=== PATIENT | male | born 1985 | race Caucasian/White ===

== ENCOUNTER 2021-04-16 23:19 | Inpatient (IN) ==
[2021-04-16] MEDS ORDERED: 0.9 % Sodium Chloride 1,000 ML IVC ONE (23:51)
[2021-04-17 00:42] LABS: ABG Base Excess 1 mEq/L (-2 to 3); ABG HCO3 25 mEq/L (21-27); ABG Oxygen Saturation 95 % (95-98); ABG PCO2 35 mmHg (35-45); ABG PH 7.45 pH Units (7.32-7.45); ABG PO2 73 mmHg (85-104); ABG TCO2 26 mEq/L (20-26)
[2021-04-17 01:02] LABS: Basophils % 0.1 %; Hematocrit 22.3 % (37.5-50.1); Immature Granulocytes % 0.5 % (0-4); Lymphocytes # 1.9 K/mcL (0.6-4.6); Lymphocytes % 25.9 %; Mean Corpuscular HGB Conc 35.4 g/dL (31.6-35.5); Mean Corpuscular Hemoglobin 30.4 pg (28.0-33.3); Mean Corpuscular Volume 85.8 fL (83.0-100.0); Mean Platelet Volume 9.7 fL (9.4-12.4); Monocytes # 0.8 K/mcL (0.0-1.3); Monocytes % 10.4 %; Neutrophils # 4.6 K/mcL (1.6-8.9); Platelet Count 373 K/mcL (140-400); Red Cell Distribution Width 11.7 % (11.5-14.5); Segmented Neutrophils % 63.1 %; White Blood Count 7.3 K/mcL (4.3-11.1)
[2021-04-17 01:04] LABS: Hemoglobin 7.9 g/dL (12.9-16.9)
[2021-04-17 01:21] LABS: BUN/Creatinine Ratio 52 (6-26); Blood Urea Nitrogen 30 mg/dL (6-20); Calcium 7.8 mg/dL (8.6-10.3); Carbon Dioxide 25 mEq/L (23-29); Chloride 101 mEq/L (98-107); Glucose 129 mg/dL (70-105); Osmolality,Calculated 284 (280-300); Potassium 4.1 mEq/L (3.5-5.1); Sodium 133 mEq/L (136-145); eGFR For African Americans > 60 (> 60); eGFR For Non-African Americans > 60 (> 60)
[2021-04-17] MEDS ORDERED: 0.9 % Sodium Chloride 1,000 ML IV ONE (02:28)
[2021-04-17] MEDS ORDERED: Naloxone 0.4 MG/ML INJ IVP PRN (05:13)
[2021-04-17] MEDS ORDERED: Ondansetron 4 MG/2 ML VIAL IVP PRN (05:13)
[2021-04-17] MEDS ORDERED: Ipratropium/Albuterol Neb 3 ML IH PRN (05:16)
[2021-04-17] MEDS: Pantoprazole 40 MG VIAL IVP SCH ×2 (06:26→17:36)
[2021-04-17] MEDS: 0.9 % Sodium Chloride 1,000 ML IVC SCH ×2 (06:26→15:55)
[2021-04-17] MEDS ORDERED: Calcium Gluconate 1gm/50mL 1 GM/50 ML BAG IVPB ONE (06:32)
[2021-04-17 07:56] LABS: Basophils % 0.1 %; Hematocrit 18.3 % (37.5-50.1); Hemoglobin 6.4 g/dL (12.9-16.9); Immature Granulocytes % 0.3 % (0-4); Lymphocytes # 1.9 K/mcL (0.6-4.6); Lymphocytes % 25.1 %; Mean Corpuscular Hemoglobin 30.6 pg (28.0-33.3); Mean Corpuscular Volume 87.6 fL (83.0-100.0); Mean Platelet Volume 9.9 fL (9.4-12.4); Monocytes # 0.8 K/mcL (0.0-1.3); Neutrophils # 4.8 K/mcL (1.6-8.9); Platelet Count 349 K/mcL (140-400); Red Blood Count 2.09 M/mcL (4.19-5.50); Red Cell Distribution Width 11.9 % (11.5-14.5); Segmented Neutrophils % 64.5 %; White Blood Count 7.5 K/mcL (4.3-11.1)
[2021-04-17 08:02] LABS: INR 1.3
[2021-04-17 08:10] LABS: Alanine Aminotransferase 50 Units/L (7-52); Albumin 2.7 g/dL (3.5-5.7); Albumin/Globulin Ratio 1.3 (1.1-2.2); Alkaline Phosphatase 25 Units/L (34-104); Aspartate Amino Transferase 61 Units/L (13-39); BUN/Creatinine Ratio 39 (6-26); Bilirubin,Total 0.3 mg/dL (0.3-1.0); Blood Urea Nitrogen 24 mg/dL (6-20); Calcium 7.5 mg/dL (8.6-10.3); Carbon Dioxide 25 mEq/L (23-29); Chloride 103 mEq/L (98-107); Globulin 2.1 g/dL (2.4-3.5); Glucose 108 mg/dL (70-105); Osmolality,Calculated 279 (280-300); Potassium 4.2 mEq/L (3.5-5.1); Sodium 132 mEq/L (136-145); Total Protein 4.8 g/dL (6.4-8.9); eGFR For African Americans > 60 (> 60); eGFR For Non-African Americans > 60 (> 60)
[2021-04-17 08:11] LABS: % Iron Saturation 25 % (20-55); Iron 64 mcg/dL (65-175); Transferrin 183 mg/dL (203-362)
[2021-04-17 08:24] LABS: Ferritin 287 ng/mL (20-250)
[2021-04-17] MEDS ORDERED: Pantoprazole 40 MG VIAL IVP SCH (09:00)
[2021-04-17 10:34] LABS: Bilirubin,Urine Negative (Negative); Blood,Urine Negative (Negative); Clarity,Urine Clear (Clear); Color,Urine Light-Yellow (Yellow); Glucose,Urine (UA) Normal (Normal); Ketones,Urine Negative (Negative); Leukocyte Esterase,Urine Negative (Negative); Nitrite,Urine Negative (Negative); Protein,Urine Trace mg/dL (Neg-Trace); Specific Gravity,Urine 1.025 (1.010-1.025); Urobilinogen,Urine Normal (Normal)
[2021-04-17] MEDS ORDERED: 0.9 % Sodium Chloride 250 ML ONE (17:52)
[2021-04-17 21:30] LABS: Hematocrit 21.1 % (37.5-50.1); Hemoglobin 7.2 g/dL (12.9-16.9)
[2021-04-18] MEDS: Pantoprazole 40 MG VIAL IVP SCH (05:18)
[2021-04-18] MEDS: amLODIPine 5 MG TABLET PO SCH (09:16)
[2021-04-18 11:51] LABS: Basophils % 0.2 %; Eosinophils % 0.3 %; Hemoglobin 6.9 g/dL (12.9-16.9); Immature Granulocytes % 0.7 % (0-4); Lymphocytes # 1.8 K/mcL (0.6-4.6); Lymphocytes % 18.2 %; Mean Corpuscular HGB Conc 34.5 g/dL (31.6-35.5); Mean Corpuscular Hemoglobin 30.7 pg (28.0-33.3); Mean Corpuscular Volume 88.9 fL (83.0-100.0); Mean Platelet Volume 9.9 fL (9.4-12.4); Monocytes # 1.2 K/mcL (0.0-1.3); Monocytes % 12.8 %; Neutrophils # 6.6 K/mcL (1.6-8.9); Platelet Count 374 K/mcL (140-400); Red Blood Count 2.25 M/mcL (4.19-5.50); Red Cell Distribution Width 12.3 % (11.5-14.5); Segmented Neutrophils % 67.8 %; White Blood Count 9.7 K/mcL (4.3-11.1)
[2021-04-18 12:06] LABS: BUN/Creatinine Ratio 15 (6-26); Blood Urea Nitrogen 10 mg/dL (6-20); Calcium 7.9 mg/dL (8.6-10.3); Carbon Dioxide 27 mEq/L (23-29); Chloride 101 mEq/L (98-107); Glucose 107 mg/dL (70-105); Osmolality,Calculated 280 (280-300); Potassium 3.9 mEq/L (3.5-5.1); Sodium 135 mEq/L (136-145); eGFR For African Americans > 60 (> 60); eGFR For Non-African Americans > 60 (> 60)
[2021-04-18] MEDS ORDERED: *HR* Promethazine 25 MG/ML VIAL IM ONE (12:54)
[2021-04-18] MEDS: Pantoprazole 40 MG in 0.9 % Sodium Chloride Mini Bag 100 ML IVC SCH ×3 (13:37→22:27)
[2021-04-18] MEDS ORDERED: 0.9 % Sodium Chloride 250 ML ONE (14:24)
[2021-04-18] MEDS: Acetaminophen 325 MG TABLET PO PRN (17:39)
[2021-04-18] MEDS: Ondansetron 4 MG/2 ML VIAL IVP PRN ×2 (17:40→22:28)
[2021-04-18 20:09] LABS: Hematocrit 22.6 % (37.5-50.1); Hemoglobin 7.7 g/dL (12.9-16.9)
[2021-04-19] MEDS ORDERED: Prochlorperazine 10 MG/2 ML VIAL IVP PRN (01:54)
[2021-04-19] MEDS ORDERED: *HR* LORazepam 2 MG/ML VIAL IVP ONE ×2 (03:57→22:14)
[2021-04-19] MEDS: Pantoprazole 40 MG in 0.9 % Sodium Chloride Mini Bag 100 ML IVC SCH ×4 (04:20→19:48)
[2021-04-19 05:57] LABS: Basophils % 0.1 %; Eosinophils % 0.2 %; Hematocrit 22.8 % (37.5-50.1); Hemoglobin 7.8 g/dL (12.9-16.9); Immature Granulocytes % 0.6 % (0-4); Lymphocytes # 1.4 K/mcL (0.6-4.6); Lymphocytes % 11.2 %; Mean Corpuscular HGB Conc 34.2 g/dL (31.6-35.5); Mean Corpuscular Hemoglobin 30.2 pg (28.0-33.3); Mean Corpuscular Volume 88.4 fL (83.0-100.0); Mean Platelet Volume 9.7 fL (9.4-12.4); Monocytes # 2.2 K/mcL (0.0-1.3); Platelet Count 439 K/mcL (140-400); Red Blood Count 2.58 M/mcL (4.19-5.50); Red Cell Distribution Width 12.3 % (11.5-14.5); Segmented Neutrophils % 70.9 %; White Blood Count 12.6 K/mcL (4.3-11.1)
[2021-04-19 06:15] LABS: BUN/Creatinine Ratio 11 (6-26); Blood Urea Nitrogen 8 mg/dL (6-20); Calcium 8.1 mg/dL (8.6-10.3); Carbon Dioxide 28 mEq/L (23-29); Chloride 99 mEq/L (98-107); Glucose 113 mg/dL (70-105); Osmolality,Calculated 277 (280-300); Potassium 3.6 mEq/L (3.5-5.1); Sodium 134 mEq/L (136-145); eGFR For African Americans > 60 (> 60); eGFR For Non-African Americans > 60 (> 60)
[2021-04-19] MEDS: amLODIPine 5 MG TABLET PO SCH (09:40)
[2021-04-19] MEDS: Ondansetron 4 MG/2 ML VIAL IVP PRN (15:05)
[2021-04-19] MEDS: Acetaminophen 325 MG TABLET PO PRN (17:38)
[2021-04-19] MEDS ORDERED: *HR* Promethazine 25 MG/ML VIAL IM ONE (19:17)
[2021-04-20] MEDS: Pantoprazole 40 MG in 0.9 % Sodium Chloride Mini Bag 100 ML IVC SCH ×3 (00:04→09:38)
[2021-04-20] MEDS ORDERED: *HR* LORazepam 2 MG/ML VIAL IVP ONE (01:45)
[2021-04-20] MEDS ORDERED: hydrOXYzine pamoate 25 MG CAPSULE PO ONE (03:49)
[2021-04-20 07:52] LABS: Basophils % 0.1 %; Eosinophils # 0.1 K/mcL (0.0-0.6); Eosinophils % 0.7 %; Hematocrit 22.4 % (37.5-50.1); Hemoglobin 7.7 g/dL (12.9-16.9); Immature Granulocytes % 0.8 % (0-4); Lymphocytes # 1.8 K/mcL (0.6-4.6); Lymphocytes % 12.9 %; Mean Corpuscular HGB Conc 34.4 g/dL (31.6-35.5); Mean Corpuscular Volume 90.3 fL (83.0-100.0); Mean Platelet Volume 9.9 fL (9.4-12.4); Monocytes # 2.4 K/mcL (0.0-1.3); Monocytes % 16.6 %; Neutrophils # 9.8 K/mcL (1.6-8.9); Platelet Count 515 K/mcL (140-400); Red Blood Count 2.48 M/mcL (4.19-5.50); Red Cell Distribution Width 12.6 % (11.5-14.5); Segmented Neutrophils % 68.9 %; White Blood Count 14.2 K/mcL (4.3-11.1)
[2021-04-20 08:15] LABS: BUN/Creatinine Ratio 12 (6-26); Blood Urea Nitrogen 9 mg/dL (6-20); Calcium 8.4 mg/dL (8.6-10.3); Carbon Dioxide 30 mEq/L (23-29); Chloride 100 mEq/L (98-107); Glucose 109 mg/dL (70-105); Osmolality,Calculated 281 (280-300); Potassium 3.6 mEq/L (3.5-5.1); Sodium 136 mEq/L (136-145); eGFR For African Americans > 60 (> 60); eGFR For Non-African Americans > 60 (> 60)
[2021-04-20] MEDS: amLODIPine 5 MG TABLET PO SCH (09:38)
[2021-04-20 11:28] VITALS: TEMP 98.4; O2SAT 96
[2021-04-20 14:24] VITALS: BP 144/80; PULSE 82
[2021-04-20] MEDS ORDERED: *HR* Propofol 200 MG/20 ML VIAL IVP ONE (16:09)
[2021-04-20] MEDS ORDERED: Lidocaine -MPF 2% 5 ML VIAL SQ ONE (16:09)
== END 2021-04-20 16:10 | disposition home or self-care (01) | DRG 377 ==
LOC: EMEROOARM 23:19 → CDU 23:19 → SUATTDRO 04-17 03:21 → CDU 04-17 04:00 → 3NENU 04-18 21:04
PROVIDERS: ADMIT Internal Medicine; ATTEND Internal Medicine

== ENCOUNTER 2021-04-27 09:10 | Observation (INO) ==
[2021-04-27 12:26] LABS: Basophils # 0.1 K/mcL (0.0-0.2); Basophils % 0.5 %; Eosinophils # 0.3 K/mcL (0.0-0.6); Hematocrit 23.6 % (37.5-50.1); Hemoglobin 7.6 g/dL (12.9-16.9); Immature Granulocytes % 0.6 % (0-4); Lymphocytes # 2.6 K/mcL (0.6-4.6); Lymphocytes % 25.5 %; Mean Corpuscular HGB Conc 32.2 g/dL (31.6-35.5); Mean Corpuscular Hemoglobin 29.1 pg (28.0-33.3); Mean Corpuscular Volume 90.4 fL (83.0-100.0); Mean Platelet Volume 8.8 fL (9.4-12.4); Monocytes # 1.4 K/mcL (0.0-1.3); Monocytes % 13.5 %; Neutrophils # 5.8 K/mcL (1.6-8.9); Platelet Count 1003 K/mcL (140-400); Red Blood Count 2.61 M/mcL (4.19-5.50); Segmented Neutrophils % 56.9 %; White Blood Count 10.1 K/mcL (4.3-11.1)
[2021-04-27 12:48] LABS: BUN/Creatinine Ratio 25 (6-26); Blood Urea Nitrogen 14 mg/dL (6-20); C-Reactive Protein 23 mg/L (Less than 10); Calcium 8.9 mg/dL (8.6-10.3); Carbon Dioxide 28 mEq/L (23-29); Chloride 102 mEq/L (98-107); Glucose 97 mg/dL (70-105); Osmolality,Calculated 282 (280-300); Potassium 4.3 mEq/L (3.5-5.1); Sodium 136 mEq/L (136-145); eGFR For African Americans > 60 (> 60); eGFR For Non-African Americans > 60 (> 60)
[2021-04-27] MEDS ORDERED: Naloxone 0.4 MG/ML INJ IVP PRN ×2 (14:04→17:56)
[2021-04-27] MEDS ORDERED: *HR* Heparin 5,000 UNIT/ML VIAL IVP ONE (15:48)
[2021-04-27] MEDS ORDERED: *HR* Heparin 5,000 UNIT/ML VIAL IVP PRN (15:48)
[2021-04-27 16:11] LABS: % Iron Saturation 11 % (20-55); Iron 32 mcg/dL (65-175); Transferrin 216 mg/dL (203-362)
[2021-04-27 16:29] LABS: Ferritin 72 ng/mL (20-250)
[2021-04-27 16:35] LABS: Folate 8.1 ng/mL (3.0-16.0)
[2021-04-27] MEDS: Heparin 25,000UNIT/250ML 1/2NS 25,000 UNIT/250 ML IV.SOLN IVC SCH (17:26)
[2021-04-27] MEDS ORDERED: Acetaminophen 325 MG TABLET PO PRN (17:56)
[2021-04-27] MEDS ORDERED: Ibuprofen 400 MG TABLET PO PRN (17:56)
[2021-04-27] MEDS ORDERED: *HR* OxyCODONE Immed Rel 5 MG TABLET PO PRN (17:56)
[2021-04-27] MEDS: Cyanocobalamin (B-12) 1,000 MCG/ML VIAL SQ SCH (18:11)
[2021-04-27] MEDS: hydrOXYzine pamoate 25 MG CAPSULE PO PRN (22:18)
[2021-04-27 22:51] LABS: Hematocrit 27.3 % (37.5-50.1); Hemoglobin 8.7 g/dL (12.9-16.9); Mean Corpuscular HGB Conc 31.9 g/dL (31.6-35.5); Mean Platelet Volume 9.4 fL (9.4-12.4); Platelet Count 1055 K/mcL (140-400); Red Cell Distribution Width 13.2 % (11.5-14.5); White Blood Count 10.3 K/mcL (4.3-11.1)
[2021-04-27 22:59] LABS: Heparin anti-factor XA UFH 0.17 IU/mL (0.30-0.70)
[2021-04-27 23:00] LABS: INR 1.1; Prothrombin Time 13.1 Seconds (9.4-12.1)
[2021-04-27] MEDS: *HR* Heparin 5,000 UNIT/ML VIAL IVP PRN (23:09)
[2021-04-28 05:57] LABS: Basophils # 0.1 K/mcL (0.0-0.2); Basophils % 0.5 %; Eosinophils # 0.3 K/mcL (0.0-0.6); Eosinophils % 3.4 %; Hematocrit 24.1 % (37.5-50.1); Hemoglobin 7.8 g/dL (12.9-16.9); Immature Granulocytes % 0.7 % (0-4); Lymphocytes # 3.5 K/mcL (0.6-4.6); Lymphocytes % 38.2 %; Mean Corpuscular HGB Conc 32.4 g/dL (31.6-35.5); Mean Corpuscular Hemoglobin 29.5 pg (28.0-33.3); Mean Corpuscular Volume 91.3 fL (83.0-100.0); Mean Platelet Volume 10.2 fL (9.4-12.4); Monocytes # 1.1 K/mcL (0.0-1.3); Monocytes % 11.8 %; Neutrophils # 4.2 K/mcL (1.6-8.9); Platelet Count 556 K/mcL (140-400); Red Blood Count 2.64 M/mcL (4.19-5.50); Red Cell Distribution Width 13.2 % (11.5-14.5); Segmented Neutrophils % 45.4 %; White Blood Count 9.2 K/mcL (4.3-11.1)
[2021-04-28 06:19] LABS: BUN/Creatinine Ratio 21 (6-26); Blood Urea Nitrogen 13 mg/dL (6-20); Carbon Dioxide 27 mEq/L (23-29); Chloride 101 mEq/L (98-107); Glucose 97 mg/dL (70-105); Osmolality,Calculated 282 (280-300); Potassium 4.1 mEq/L (3.5-5.1); Sodium 136 mEq/L (136-145); eGFR For African Americans > 60 (> 60); eGFR For Non-African Americans > 60 (> 60)
[2021-04-28 06:21] LABS: Anisocytosis 1+ (Not Present); Hypochromasia Present (Not Present); Platelet Estimate Marked Increase (Normal); Polychromasia 1+ (Not Present)
[2021-04-28] MEDS: *HR* Heparin 5,000 UNIT/ML VIAL IVP PRN (06:29)
[2021-04-28] MEDS: Cyanocobalamin (B-12) 1,000 MCG/ML VIAL SQ SCH (09:09)
[2021-04-28] MEDS: Heparin 25,000UNIT/250ML 1/2NS 25,000 UNIT/250 ML IV.SOLN IVC SCH ×2 (17:00→23:17)
[2021-04-28 19:00] LABS: Hematocrit 27.6 % (37.5-50.1); Hemoglobin 9.1 g/dL (12.9-16.9)
[2021-04-28] MEDS: hydrOXYzine pamoate 25 MG CAPSULE PO PRN (22:44)
[2021-04-29] MEDS: Cyanocobalamin (B-12) 1,000 MCG/ML VIAL SQ SCH (09:40)
[2021-04-29 09:53] LABS: Basophils # 0.1 K/mcL (0.0-0.2); Basophils % 0.7 %; Eosinophils # 0.3 K/mcL (0.0-0.6); Hematocrit 25.5 % (37.5-50.1); Hemoglobin 8.5 g/dL (12.9-16.9); Immature Granulocytes % 0.7 % (0-4); Lymphocytes # 2.8 K/mcL (0.6-4.6); Lymphocytes % 29.2 %; Mean Corpuscular HGB Conc 33.3 g/dL (31.6-35.5); Mean Corpuscular Hemoglobin 29.9 pg (28.0-33.3); Mean Corpuscular Volume 89.8 fL (83.0-100.0); Mean Platelet Volume 8.6 fL (9.4-12.4); Monocytes # 1.3 K/mcL (0.0-1.3); Monocytes % 13.7 %; Platelet Count 1159 K/mcL (140-400); Red Blood Count 2.84 M/mcL (4.19-5.50); Red Cell Distribution Width 13.1 % (11.5-14.5); Segmented Neutrophils % 52.7 %; White Blood Count 9.6 K/mcL (4.3-11.1)
[2021-04-29 10:10] LABS: BUN/Creatinine Ratio 15 (6-26); Blood Urea Nitrogen 12 mg/dL (6-20); Calcium 9.6 mg/dL (8.6-10.3); Carbon Dioxide 31 mEq/L (23-29); Chloride 101 mEq/L (98-107); Glucose 113 mg/dL (70-105); Osmolality,Calculated 285 (280-300); Potassium 4.2 mEq/L (3.5-5.1); Sodium 137 mEq/L (136-145); eGFR For African Americans > 60 (> 60); eGFR For Non-African Americans > 60 (> 60)
[2021-04-29 10:25] LABS: Neutrophils # 5.1 K/mcL (1.6-8.9); Platelet Estimate Marked Increase (Normal)
[2021-04-29 14:17] VITALS: BP 137/75; PULSE 69; TEMP 98.5; O2SAT 98
[2021-04-29] MEDS ORDERED: Apixaban 5 MG TABLET PO SCH ×2 (15:41→21:00)
[2021-05-01 14:42] LABS: Ristocetin Cofactor-VWF Active 198 % (51-215); Von Willebrand Factor Ag 317 % (52-214)
[2021-05-03 13:57] LABS: JAK2 (V617F) SOURCE WHOLE BLOOD
[2021-05-04 11:10] LABS: BCR-ABL1 Specimen Source NOT SPECIFIED
[2021-05-04 15:51] LABS: JAK2 (V617F) Mutation by PCR NOT DETECTED
== END 2021-04-29 16:24 | disposition home or self-care (01) ==
LOC: EMEROOARM 09:10 → 3ANU 09:10 → SUATTDRO 14:35 → 3ANU 15:17
PROVIDERS: ADMIT Student in an Organized Health Care Education/Training Program; ATTEND Internal Medicine